=== PATIENT | male | born 1970 | race Caucasian/White ===

== ENCOUNTER 2022-01-07 06:09 | Day surgery (SDC) | payer OTHER ==
[2021-12-28 11:54] VITALS: BMI 40.6
[2022-01-07] MEDS ORDERED: BUPIVACAINE HCL/EPINEPHRINE/PF 30 ML VIAL IJ ONE (07:12)
[2022-01-07] MEDS ORDERED: EPINEPHrine 1:1,000 1,000 MCG/ML ML ONE (07:17)
[2022-01-07] MEDS ORDERED: ROPIVACAINE HCL/PF 100 MG/20 ML VIAL ONE (08:02)
[2022-01-07] MEDS ORDERED: MIDAZOLAM HCL 2 MG/2 ML SINGLE DOSE VIAL ONE ×3 (08:02→09:31)
[2022-01-07] MEDS ORDERED: DEXAMETHASONE SOD PHOSPHATE 10 MG/1 ML VIAL ONE (08:02)
[2022-01-07] MEDS ORDERED: PROPOFOL 100 ML ONE (08:18)
[2022-01-07] MEDS ORDERED: PROPOFOL 60 ML ONE (10:00)
[2022-01-07] MEDS ORDERED: oxyCODONE HCL 5 MG TABLET PO PRN ×2 (10:49)
[2022-01-07] MEDS ORDERED: PROMETHAZINE HCL 25 MG/1 ML VIAL IVPUSH PRN (10:49)
[2022-01-07] MEDS ORDERED: ONDANSETRON 4 MG/2 ML VIAL IVPUSH PRN (10:49)
[2022-01-07] MEDS ORDERED: ACETAMINOPHEN 325 MG TABLET (FP) PO PRN (10:50)
[2022-01-07 13:00] VITALS: TEMP 97.7
[2022-01-07 13:03] VITALS: RESP 17
[2022-01-07 13:16] VITALS: BP 130/82; PULSE 84
== END 2022-01-07 12:20 | disposition home or self-care (01) ==
LOC: FASU 06:09
PROVIDERS: ATTEND Orthopaedic Surgery
PROC: 0RNK4ZZ Release Left Shoulder Joint, Percutaneous Endoscopic Approach (ICD-10-PCS; 2022-01-07)
PROC: 0LM24ZZ Reattachment of Left Shoulder Tendon, Percutaneous Endoscopic Approach (ICD-10-PCS; principal; 2022-01-07 08:57)
PROC: 0LS44ZZ Reposition Left Upper Arm Tendon, Percutaneous Endoscopic Approach (ICD-10-PCS; 2022-01-07 08:57)
PROC: 0RHK44Z Insertion of Internal Fixation Device into Left Shoulder Joint, Percutaneous Endoscopic Approach (ICD-10-PCS; 2022-01-07 08:57)
DX: M75.122 Complete rotator cuff tear or rupture of left shoulder, not specified as traumatic (principal); S46.112A Strain of muscle, fascia and tendon of long head of biceps, left arm, initial encounter; X58.XXXA Exposure to other specified factors, initial encounter; Y93.9 Activity, unspecified
CPT/HCPCS: 29826; 29827; 29828; C1713; 88304-TC; 94760; J1100